=== PATIENT | female | born 1990 | race Caucasian/White ===

== ENCOUNTER 2022-05-18 19:25 | Emergency (ER) | payer OTHER ==
[2022-05-18 19:29] VITALS: BP 115/74; PULSE 95; RESP 18; TEMP 99.6; BMI 31.7
[2022-05-18 21:39] LABS: BASO % 0.2 % (0-2.0); EOS % 4.3 % (0-4.5); HEMATOCRIT 42.6 % (32.4-45.2); HEMOGLOBIN 14.2 GM/dL (10.7-15.3); LYMPH % 17.3 % (8-40); MCH 28.3 pg (25.7-33.7); MCHC 33.4 g/dl (32.0-36.0); MEAN CELL VOLUME 84.8 fl (80-96); MEAN PLT VOLUME 8.8 fl (7.5-11.1); MONO % 9.9 % (3.8-10.2); NEUT % 68.3 % (42.8-82.8); PLATELET COUNT 290 10^3/uL (134-434); RBC 5.02 M/mm3 (3.60-5.2); RDW 15.6 % (11.6-15.6); WHITE BLOOD COUNT 8.8 K/mm3 (4.0-10.0)
[2022-05-18 22:03] LABS: CALCIUM 8.9 mg/dL (8.5-10.1)
[2022-05-18 22:04] LABS: ALBUMIN 3.6 g/dl (3.4-5.0); BLOOD UREA NITROGEN 5.6 mg/dL (7-18)
[2022-05-18 22:07] LABS: CREATININE 0.5 mg/dL (0.55-1.3)
[2022-05-18 22:09] LABS: BILIRUBIN,TOTAL 0.4 mg/dL (0.2-1); TOT PROT 7.4 g/dl (6.4-8.2)
== END 2022-05-18 23:36 | disposition home or self-care (01) ==
LOC: JER 19:25
DX: O20.0 Threatened abortion (principal)
CPT/HCPCS: 36415; 76801-TC; 80053; 84702; 85025; 86850; 86900; 86901; 99284-25